=== PATIENT | female | born 1965 | race Caucasian/White ===

== ENCOUNTER 2022-10-08 12:56 | Emergency (ER) | payer SELFPAY ==
[~2022-10-08] VITALS: Ht 167.6 cm; Wt 68.5 kg
--- NOTE | 2022-10-08 13:00 | NUR ---
PT IN ROOM ANXIOUS BUT A/OX4. PT DENIES ANY PAIN OR DISTRESS. AWAITING TO BE SEEN BY .
[2022-10-08 13:19] VITALS: BP 148/83
--- NOTE | 2022-10-08 14:15 | NUR ---
PT IS A/OX4. GAVE AND EXPLAINED D/C INSTRUCTIONS. 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 PT WILL KIKE LOYD. WALKED PT TO ER WAITING AREA. D/C HOME
[2022-10-08 14:26] VITALS: BP 131/82
--- NOTE | 2022-10-08 14:27 | NUR ---
Patient discharged with v/s stable. Written and verbal after care instructions given and explained. Patient verbalized understanding. Ambulatory with steady gait. All questions addressed prior to discharge. Advised to follow up with PMD.
== END 2022-10-08 14:26 | disposition home or self-care (01) ==
LOC: MED 12:56
DX: F10.129 Alcohol abuse with intoxication, unspecified (principal); Y90.9 Presence of alcohol in blood, level not specified
CPT/HCPCS: 99283